=== PATIENT | female | born 1980 | race American Indian/Alaskan Native ===

== ENCOUNTER 2018-09-20 17:01 | Emergency (ER) | payer SELFPAY ==
[2018-09-20 17:19] VITALS: O2SAT 100
--- NOTE | 2018-09-20 18:41 | RAD ---
PROCEDURE: Left Foot Radiographs. HISTORY: left foot pain COMPARISON: None available. FINDINGS: BONES: No acute displaced fracture. JOINTS: No dislocation. SOFT TISSUES: Unremarkable. No evidence of radiopaque foreign body. OTHER FINDINGS: None. IMPRESSION: No acute displaced fracture, dislocation, or significant joint effusion identified. If symptoms persist, or if there is continued clinical concern, x-ray follow-up in 7-10 days should be considered.
--- NOTE | 2018-09-20 19:16 | CP.PCM.CON ---
History of Present Illness - History of Present Illness History of Present Illness: Podiatry Consult Note for Dr. Jamila Kumari: 37 yo female patient, with no PMHx, seen and evaluated in the ED for L foot pain. Patient is well known to Dr. Kumari. Patient stated that the pain started 2 days ago and hurts so much she is unable to bear weight to her LLE. She denies any traumas to the area stating the pain occurred out of no where. She mentions that a few weeks ago she was given a prescription for Levaquin for a UTI inf ection. Denies any other pedal complaints. She denies N/V/F/SOB. PMHx: denies ALL: Aspirin Review of Systems - Review of Systems Review of Systems: As per HPI Past Patient History - Past Social History Smoking Status: Never Smoked - PSYCHIATRIC Hx Substance Use: No Meds Allergies/Adverse Reactions: Allergies Allergy/AdvReac Type Severity Reaction Status Date / Time aspirin Allergy SHORTNESS Verified 09/20/18 17:16 OF BREATH bacitracin Allergy RASH Verified 09/20/18 17:16 [From Neosporin ([id number])] neomycin Allergy RASH Verified 09/20/18 17:16 [From Neosporin ([id number])] polymyxin B Allergy RASH Verified 09/20/18 17:16 [From Neosporin ([id number])] Physical Exam - Constitutional Appears: Well, Non-toxic, No Acute Distress - Head Exam Head Exam: ATRAUMATIC, NORMOCEPHALIC - Extremities Exam Additional comments: Vascular: DP/PT 2/4, CFT < 3 seconds to all digits, TG warm to warm, mild edema noted to lateral aspect of ankle joint Ortho: Pain upon palpation posterior to the lateral malleolus and along the course of the peroneal tendons. MMT 4/5 secondary to patient guarding. Patient elicits pain upon eversion and dorsiflexion Neuro: Gross and protective sensation intact Derm: No open lesions, mild erythema to posterior aspect of ankle, no clinical signs of infection - Neurological Exam Neurological exam: Alert, Oriented x3 - Psychiatric Exam Psychiatric exam: Normal Affect, Normal Mood Results - Vital Signs Recent Vital Signs: Last Vital Signs Temp 98.5 F 09/20/18 17:17 Pulse 100 H 09/20/18 17:17 Resp 16 09/20/18 17:17 BP 158/63 H 09/20/18 17:17 Pulse Ox 100 09/20/18 17:17 Assessment & Plan - Assessment and Plan (Free Text) Assessment: 37 yo female patient, with no PMHx, seen and evaluated in the ED for L foot pain r/o tendon rupture Plan: Patient seen and evaluated Discussed patient in detail with Dr. Kumari Patient placed in Kang compression and splint Instructed to remain NWB to left lower extremity L ankle x-rays ordered; No acute displaced fracture, dislocation, or significant joint effusion identified L MRI ordered; results pending - Patient will be updated with results Upon D/C patient to follow up in Dr. Kumari's office Thank you for the consult - Date & Time Date: 09/20/18 Time: 19:19
--- NOTE | 2018-09-20 19:38 | ED PDOC ---
Lower Extremity Pain/Injury Time Seen by Provider: 09/20/18 18:19 Chief Complaint (Nursing): Lower Extremity Problem/Injury Chief Complaint (Provider): Left Heel Pain History Per: Patient History/Exam Limitations: no limitations Onset/Duration Of Symptoms: Days (x1) Current Symptoms Are (Timing): Still Present Additional Complaint(s): 37 year old female with no pmhx presents to the ED for evaluation of sudden onset sharp pain to her left lateral foot beginning last night, worsening since with movement and is currently unable to bear weight or ambulate without severe pain. She states she was seen by her friend who is a foot doctor, had XRs of unknown results, and was put in a splint with crutches and sent here for evaluation. Pt has not taken any medication for pain. Otherwise, denies trauma, fever, chills, knee pain, numbness, paresthesias, nausea, vomiting, and back pain. Of note, she reports being on Levaquin for the past week for a UTI. PMD: Manuel Rose Past Medical History Reviewed: Historical Data, Nursing Documentation, Vital Signs Vital Signs: Last Vital Signs Temp 98.5 F 09/20/18 17:17 Pulse 100 H 09/20/18 17:17 Resp 16 09/20/18 17:17 BP 158/63 H 09/20/18 17:17 Pulse Ox 100 09/20/18 17:17 - Medical History PMH: No Chronic Diseases - Surgical History Surgical History: No Surg Hx - Family History Family History: States: Unknown Family Hx - Social History Current smoker - smoking cessation education provided: No Alcohol: None Drugs: Denies - Allergies Allergies/Adverse Reactions: Allergies Allergy/AdvReac Type Severity Reaction Status Date / Time aspirin Allergy SHORTNESS Verified 09/20/18 17:16 OF BREATH bacitracin Allergy RASH Verified 09/20/18 17:16 [From Neosporin ([id number])] neomycin Allergy RASH Verified 09/20/18 17:16 [From Neosporin ([id number])] polymyxin B Allergy RASH Verified 09/20/18 17:16 [From Neosporin ([id number])] Review of Systems ROS Statement: Except As Marked, All Systems Reviewed And Found Negative Constitutional: Negative for: Fever, Chills Gastrointestinal: Negative for: Vomiting Musculoskeletal: Positive for: Foot Pain (left lateral heel). Negative for: Back Pain, Other (knee pain, ankle pain) Skin: Negative for: Rash, Lesions, Bruising Neurological: Negative for: Weakness, Numbness, Other (paresthesias) Physical Exam - Reviewed Nursing Documentation Reviewed: Yes Vital Signs Reviewed: Yes - Physical Exam Appears: Positive for: No Acute Distress Head Exam: Positive for: ATRAUMATIC, NORMAL INSPECTION, NORMOCEPHALIC Skin: Positive for: Normal Color, Warm, Dry. Negative for: Rash Eye Exam: Positive for: Normal appearance, EOMI, PERRL Neck: Positive for: Normal, Painless ROM Cardiovascular/Chest: Positive for: Regular Rate, Rhythm Respiratory: Positive for: Normal Breath Sounds. Negative for: Respiratory Distress Pulses-Dorsalis Pedis (L): 2+ Pulses-Dorsalis Pedis (R): 2+ Back: Positive for: Normal Inspection Extremity: Positive for: Tenderness (point tenderness over left lateral foot over peroneal tendons with small area of erythema, but no warmth), Capillary Refill (<2s). Negative for: Normal ROM (decreased dorsiflexion, eversion secondary to pain), Calf Tenderness, Deformity, Swelling Neurologic/Psych: Positive for: Alert, neurological physiotherapist II-XII (intact), Oriented, Gait (crutches, unable to bear weight without pain), Other (Neurovascular intact). Negative for: Motor/Sensory Deficits - ECG O2 Sat by Pulse Oximetry: 100 (RA) Pulse Ox Interpretation: Normal Medical Decision Making Medical Decision Making: Time: 1738 Initial Impression: left foot pain Initial Plan: --Tylenol 650mg PO --Left foot XR --Podiatry consult 1822 Dr. Kumari of podiatry called Dr. Triplett stating that she has suspicion for tendon rupture and is requesting an MRI. Will order MRI per Dr. Kumari. Additionally, Podiatry resident Josephine Neville saw pt in ED and splinted the left ankle in posterior left ankle splint. 1858 MRI ANKLE FINDINGS: LIGAMENTS: ANTERIOR TALOFIBULAR: Unremarkable. POSTERIOR TALOFIBULAR: Unremarkable. ANTERIOR TIBIOFIBULAR: Unremarkable. POSTERIOR TIBIOFIBULAR: Unremarkable. CALCANEOFIBULAR: Unremarkable. DELTOID: Unremarkable. SPRING: Unremarkable. LISFRANC: Unremarkable. TENDONS: ACHILLES: Unremarkable. POSTERIOR TIBIAL: Unremarkable. FLEXOR: Unremarkable. EXTENSOR: Unremarkable. PERONEAL: Unremarkable. BONES: No acute fracture or aggressive appearing osseous lesion. MUSCLES: Unremarkable. FLUID: No joint effusion. SINUS TARSI: Unremarkable. TARSAL TUNNEL: Unremarkable. PLANTAR FASCIA: Unremarkable. CARTILAGE: Unremarkable. IMPRESSION: Normal left ankle Per podiatry resident, pt will followup in podiatry clinic this Tuesday and should keep her left leg in the splint until that time. Plan of care discussed with pt who understands and agrees. Impression Left foot pain Plan --podiatry followup tuesday --ibuprofen/tylenol for pain --keep splint on until followup --return for new/worsening symptoms - Scribe Attestation: Documented by Jocelyn Altamirano, acting as a scribe for May Norris PA-C. Provider Scribe Attestation: All medical record entries made by the Scribe were at my direction and personally dictated by me. I have reviewed the chart and agree that the record accurately reflects my personal performance of the history, physical exam, medical decision making, and the department course for this patient. I have also personally directed, reviewed, and agree with the discharge instructions and disposition. Disposition - Clinical Impression Clinical Impression: Foot pain - Patient ED Disposition Is Patient to be Admitted: No - Disposition Referrals: Podiatry Clinic [Outside] Disposition: Routine/Home Disposition Time: 19:45 Condition: IMPROVED Additional Instructions: Followup in podiatry clinic tuesday ibuprofen/tylenol for pain use crutches rest, ice, elevate injury keep splint on until followup Return for new or worsening symptoms Forms: [employer] (Al[place]ian), [facility] ED School/Work Excuse
[2018-09-20 23:04] VITALS: BP 130/78; PULSE 71; RESP 18; TEMP 98
--- NOTE | 2018-09-21 13:45 | MRI ---
Date of service: 09/20/2018 PROCEDURE: MRI Left Ankle HISTORY: Pain. COMPARISON: None available. TECHNIQUE: Multiecho multiplanar sequences were performed through the left ankle without the use of intravenous contrast. FINDINGS: ANTERIOR EXTENSOR TENDONS: Intact. MEDIAL FLEXOR TENDONS: Trace amount of fluid about the posterior tibial tendon. PERONEAL TENDONS: Intact. ANTERIOR INFERIOR TIBIOFIBULAR (SYNDESMOSIS): Intact. POSTERIOR INFERIOR TIBIOFIBULAR (SYNDESMOSIS): Intact. ANTERIOR TALOFIBULAR LIGAMENT: Intact. POSTERIOR TALOFIBULAR LIGAMENT: Intact. PLANTAR FASCIA: Unremarkable. SINUS TARSI: Unremarkable. ACHILLES TENDON: Intact. DELTOID LIGAMENT COMPLEX - DEEP: Intact. CALCANEOFIBULAR LIGAMENT: Intact. SPRING (PLANTAR CALCANEO-NAVICULAR) LIGAMENT: Intact. BONES: Marrow signal is unremarkable.. CARTILAGE: No focal cartilage defect identified.. JOINT FLUID: There is no significant joint effusion. MUSCLES: Unremarkable. OTHER FINDINGS: None . IMPRESSION: Trace amount of fluid about the posterior tibial tendon which may represent a mild tenosynovitis. Preliminary impression was provided by the Teleradiology service- [facility] Rad. Major findings are concordant..
== END 2018-09-20 23:03 | disposition home or self-care (01) ==
LOC: H.ER 17:01
DX: M79.672 Pain in left foot (principal)